=== PATIENT | female | born 1935 | race Caucasian/White ===

== ENCOUNTER 2020-11-06 13:20 | Emergency (ER) | payer MEDICARE, OTHER ==
[2020-11-06 15:22] LABS: INR 1.06 (0.9-1.2); PROTHROMBIN TIME 13.1 SECONDS (11.4-13.6); PTT 28.5 SECONDS (22.2-34.7)
== END 2020-11-06 22:55 | disposition home or self-care (01) ==
LOC: FER 13:20
PROVIDERS: Emergency Medicine
DX: S61.412A Laceration without foreign body of left hand, initial encounter (principal); S83.92XA Sprain of unspecified site of left knee, initial encounter; S00.83XA Contusion of other part of head, initial encounter; I10 Essential (primary) hypertension; F03.90 Unspecified dementia, unspecified severity, without behavioral disturbance, psychotic disturbance, mood disturbance, and anxiety; E03.9 Hypothyroidism, unspecified; Z23 Encounter for immunization; Z79.899 Other long term (current) drug therapy; W18.09XA Striking against other object with subsequent fall, initial encounter
CPT/HCPCS: 36415; 70450; 70486; 72125; 73130; 73560; 85610; 85730; 90471; 90714

== ENCOUNTER 2020-11-16 22:52 | Emergency (ER) | payer MEDICARE, OTHER ==
[2020-11-17 06:02] LABS: BASOPHIL 0.7 % (0-2); EOSINOPHIL 5.4 % (0-7); HCT 26.9 % (37.0-47.0); HGB 8.6 g/dl (12.5-16.0); LYMPHOCYTE 26.1 % (15-48); MCH 33.1 pg (25.0-31.0); MCV 103.5 fL (78.0-100.0); MONOCYTE 11.2 % (0-12); MPV 10.5 fL (6.0-9.5); NEUTROPHIL 56.1 % (41-80); NRBC 0; PLT 177 K/uL (150-400); RDW 13.8 % (11.5-14.0); WBC 4.3 K/uL (4.0-10.5)
[2020-11-17 06:03] LABS: INR 0.99 (0.9-1.2); PROTHROMBIN TIME 12.5 SECONDS (11.8-13.4)
[2020-11-17 06:04] LABS: PTT 29.2 SECONDS (24.4-34.7)
[2020-11-17 06:18] LABS: BUN/CREAT RATIO (CALC) 41.2 RATIO; CREATININE 0.68 mg/dL (0.51-0.95); POTASSIUM 3.8 mmol/L (3.5-5.1)
== END 2020-11-17 07:25 | disposition home or self-care (01) ==
LOC: FER 22:52
PROVIDERS: Emergency Medicine Emergency Medical Services
DX: S83.92XA Sprain of unspecified site of left knee, initial encounter (principal); S00.03XA Contusion of scalp, initial encounter; S00.83XA Contusion of other part of head, initial encounter; I10 Essential (primary) hypertension; G30.9 Alzheimer's disease, unspecified; F02.80 Dementia in other diseases classified elsewhere, unspecified severity, without behavioral disturbance, psychotic disturbance, mood disturbance, and anxiety; Z79.82 Long term (current) use of aspirin; Z79.02 Long term (current) use of antithrombotics/antiplatelets; Z95.5 Presence of coronary angioplasty implant and graft; W19.XXXA Unspecified fall, initial encounter; Z91.81 History of falling; Y92.129 Unspecified place in nursing home as the place of occurrence of the external cause
CPT/HCPCS: 36415; 70450; 70486; 72125; 72192; 73564; 80048; 85025; 85610; 85730

== ENCOUNTER 2021-03-07 17:31 | Emergency (ER) | payer MEDICARE ==
[2021-03-07 18:29] LABS: BASOPHIL 0.3 % (0-2); EOSINOPHIL 0.3 % (0-7); HCT 41.9 % (37.0-47.0); HGB 13.5 g/dl (12.5-16.0); LYMPHOCYTE 10.3 % (15-48); MCH 33.1 pg (25.0-31.0); MCHC 32.2 g/dL (32.0-36.0); MCV 102.7 fL (78.0-100.0); MPV 12.7 fL (6.0-9.5); NEUTROPHIL 85.8 % (41-80); NRBC 0; PLT 117 K/uL (150-400); RBC 4.08 M/uL (4.20-5.40); RDW 14.2 % (11.5-14.0); WBC 6.3 K/uL (4.0-10.5)
[2021-03-07 18:55] LABS: ALBUMIN 3.8 g/dL (3.4-5.0); BILIRUBIN - TOTAL 1.1 mg/dL (0.2-1.0); BUN/CREAT RATIO (CALC) 41.1 RATIO; CREATININE 0.95 mg/dL (0.51-0.95); GLOBULIN (CALCULATION) 3.7 g/dL; POTASSIUM 4.2 mmol/L (3.5-5.1); TOTAL PROTEIN 7.5 g/dL (6.4-8.2)
[2021-03-07] MEDS ORDERED: NORCO 5-325 TA1 EACH PO (20:12)
[2021-03-07 21:14] LABS: BILIRUBIN NEGATIVE (NEGATIVE); BLOOD 2+ Ery/uL (NEGATIVE); CLARITY CLEAR (CLEAR); COLOR YELLOW (YELLOW); GLUCOSE (U) NORMAL (NORMAL); LEUKOCYTES NEGATIVE Leu/uL (NEGATIVE); NITRITE POSITIVE (NEGATIVE); PROTEIN 2+ mg/dL (NEGATIVE); SPECIFIC GRAVITY >=1.030 (1.001-1.030); pH 5.5 (5.0-9.0)
[2021-03-07 21:26] LABS: BACTERIA 2+; SQUAMOUS EPITHELIAL CELLS 20-50; YEAST PRESENT
== END 2021-03-07 20:20 | disposition home or self-care (01) ==
LOC: FER 17:31
PROVIDERS: Emergency Medicine; Internal Medicine
DX: S72.012A Unspecified intracapsular fracture of left femur, initial encounter for closed fracture (principal); I25.10 Atherosclerotic heart disease of native coronary artery without angina pectoris; I50.9 Heart failure, unspecified; F03.90 Unspecified dementia, unspecified severity, without behavioral disturbance, psychotic disturbance, mood disturbance, and anxiety; W18.30XA Fall on same level, unspecified, initial encounter; Y92.009 Unspecified place in unspecified non-institutional (private) residence as the place of occurrence of the external cause
CPT/HCPCS: 36415; 70450; 71045; 73130; 73502; 80053; 81001; 85025; J0692